=== PATIENT | female | born 1945 | race Caucasian/White ===

== ENCOUNTER 2018-12-20 09:10 | Emergency (ER) | payer MEDICARE, MEDICAID ==
[~2018-12-20] VITALS: Ht 165.1 cm; Wt 158.8 kg
[2018-12-20 09:10] VITALS: BP_SYST 161
--- NOTE | 2018-12-20 09:10 | NUR ---
BROUGHT BACK TO BED #8 AND TRIAGED. REPORT GIVEN TO DELANEY
--- NOTE | 2018-12-20 09:28 | NUR ---
Patient to ER bed 8 to gown for evaluation. Side rails up. Report given to ANTHONY Keen.
--- NOTE | 2018-12-20 09:35 | NUR ---
ER at bedside examining patient.
[2018-12-20] MEDS ORDERED: ceFAZolin SODIUM 1 GM in D5W 50 ML IV ONE (10:30)
[2018-12-20 10:55] LABS: LYMPHOCYTES # (AUTO) 0.7 K/uL (1.0-5.5); MEAN CORPUSCULAR HEMOGLOBIN 29 pg (27-31); MEAN CORPUSCULAR HGB CONC 32 % (32-36); MONOCYTES # (AUTO) 0.7 K/uL (0.0-1.0)
[2018-12-20 11:02] LABS: HEMATOCRIT 36.8 % (36-48); HEMOGLOBIN 11.8 g/dL (12.0-16.0); MEAN CORPUSCULAR VOLUME 90 fL (79.0-98.0); PLATELET COUNT (AUTO) 183 K/uL (130-430); RED BLOOD CELL COUNT(AUTO) 4.11 MIL/uL (4.2-6.2); RED CELL DISTRIBUTION WIDTH 14.4 % (9.0-15.0); WHITE BLOOD COUNT (AUTO) 11.6 K/uL (4.8-10.8)
[2018-12-20 11:03] LABS: BASOPHILS % (AUTO) 0.3 % (0.0-2.0); EOSINOPHILS % (AUTO) 0.1 % (0.0-4.0); LYMPHOCYTES % (AUTO) 5.9 % (20.5-51.5); MONOCYTES % (AUTO) 6.4 % (1.7-9.3); NEUTROPHILS % (AUTO) 87.3 % (40.0-70.0)
[2018-12-20 11:04] LABS: NEUTROPHILS # (AUTO) 10.2 K/uL (1.8-7.7)
[2018-12-20 11:13] LABS: PROTHROMBIN TIME 9.8 SECS (9.5-12.5)
[2018-12-20 11:20] LABS: ANION GAP 9 (5-15); CALCIUM 9.7 mg/dL (8.4-11.0); CHLORIDE 101 mmol/L (98-107); CREATININE 0.91 mg/dL (0.55-1.30); GLUCOSE 180 mg/dL (70-99); POTASSIUM 4.6 mmol/L (3.5-5.1); SODIUM SERUM 137 mmol/L (136-145); UREA NITROGEN, BLOOD 17 mg/dL (8-21)
[2018-12-20] MEDS ORDERED: KETOROLAC TROMETHAMINE 30 MG VIAL IVP ONE (11:30)
[2018-12-20] MEDS ORDERED: DIPHENHYDRAMINE INJ 50 MG/ML VIAL IVP ONE (11:30)
[2018-12-20] MEDS ORDERED: MORPHINE 4 MG/ML INJ. SYRINGE IVP ONE (11:30)
[2018-12-20] MEDS ORDERED: ceFAZolin SODIUM 1 GM VIAL ONE (11:33)
[2018-12-20 11:36] LABS: ALANINE AMINOTRANSFERASE 23 U/L (12-78); ALBUMIN 3.8 g/dL (3.4-4.8); ASPARTATE AMINOTRANSFERASE 27 U/L (10-37); FREE T4 (FREE THYROXINE) 0.8 ng/dL (0.6-1.6); TOTAL BILIRUBIN 0.7 mg/dL (0.0-1.0)
[2018-12-20 13:02] VITALS: BP_SYST 141
--- NOTE | 2018-12-20 18:57 | NUR ---
Patient given written and verbal discharge instructions and verbalizes understanding. ER MD discussed with patient the results and treatment provided. Patient in stable condition. ID arm band removed. IV catheter removed intact and dressing applied, no active bleeding. Rx of Augmentin, Bactrim, [place] given. Patient educated on pain management and to follow up with PMD. Pain Scale 0/10. Opportunity for questions provided and answered. Medication side effect fact sheet provided. Addendum: 12/20/18 at 1858 by [email or web address] Time of discharge: 7412.
--- NOTE | 2018-12-21 08:43 | NUR ---
Blood culture positive for gram + cocci in clusters was resulted. The results were reviewed with Dr. Linton who states that the previously prescribed antibiotics should be emperically effective. I called the patient to perform a well check and discuss findings, however there was no answer. I left a voicemail urging the patient to call to discuss results in a HIP[facility] blinded manner.
== END 2018-12-20 18:57 | disposition home or self-care (01) ==
LOC: SED 09:10
DX: L03.115 Cellulitis of right lower limb (principal); E78.00 Pure hypercholesterolemia, unspecified; E11.9 Type 2 diabetes mellitus without complications; I10 Essential (primary) hypertension
CPT/HCPCS: 36415; 73600; 80053; 83605; 83880; 84439; 84484; 85025; 85610; 87040; 87186; 93005; 93971; 96365; 96375; 99284; J0690; J1200; J1885; J2270

== ENCOUNTER 2018-12-23 00:56 | Inpatient (IN) | payer MEDICAID, MEDICARE ==
[~2018-12-23] VITALS: Ht 157.5 cm; Wt 108.9 kg
[2018-12-23 01:05] VITALS: BP_SYST 134
[2018-12-23] MEDS ORDERED: NACL 0.9% 1,000 ML IV ONE ×2 (01:15→02:15)
[2018-12-23] MEDS ORDERED: LEVOFLOXACIN 500 MG/D5W 100 ML IV ONE (01:15)
[2018-12-23 01:41] LABS: BASOPHILS % (AUTO) 0.4 % (0.0-2.0); EOSINOPHILS # (AUTO) 0.1 K/uL (0.0-0.4); EOSINOPHILS % (AUTO) 0.7 % (0.0-4.0); HEMATOCRIT 32.5 % (36-48); HEMOGLOBIN 10.6 g/dL (12.0-16.0); LYMPHOCYTES # (AUTO) 1.1 K/uL (1.0-5.5); LYMPHOCYTES % (AUTO) 11.6 % (20.5-51.5); MEAN CORPUSCULAR HEMOGLOBIN 29 pg (27-31); MEAN CORPUSCULAR HGB CONC 33 % (32-36); MEAN CORPUSCULAR VOLUME 88 fL (79.0-98.0); MONOCYTES # (AUTO) 0.7 K/uL (0.0-1.0); MONOCYTES % (AUTO) 7.3 % (1.7-9.3); PLATELET COUNT (AUTO) 223 K/uL (130-430); RED BLOOD CELL COUNT(AUTO) 3.68 MIL/uL (4.2-6.2); RED CELL DISTRIBUTION WIDTH 13.9 % (9.0-15.0); WHITE BLOOD COUNT (AUTO) 9.9 K/uL (4.8-10.8)
[2018-12-23 01:52] LABS: ANION GAP 14 (5-15); CALCIUM 9.3 mg/dL (8.4-11.0); CHLORIDE 97 mmol/L (98-107); CREATININE 1.67 mg/dL (0.55-1.30); GLUCOSE 195 mg/dL (70-99); POTASSIUM 3.9 mmol/L (3.5-5.1); SODIUM SERUM 134 mmol/L (136-145); UREA NITROGEN, BLOOD 24 mg/dL (8-21)
[2018-12-23 01:58] LABS: ALANINE AMINOTRANSFERASE 25 U/L (12-78); ALBUMIN 3.1 g/dL (3.4-4.8); ASPARTATE AMINOTRANSFERASE 31 U/L (10-37); TOTAL BILIRUBIN 0.5 mg/dL (0.0-1.0)
[2018-12-23] MEDS ORDERED: MORPHINE 4 MG/ML INJ. SYRINGE IVP ONE (02:00)
[2018-12-23 02:09] LABS: INR 0.9 (0.8-1.2); PROTHROMBIN TIME 9.1 SECS (9.5-12.5)
[2018-12-23 03:06] LABS: BILIRUBIN,URINE NEGATIVE (NEGATIVE); CLARITY/URINE CLEAR (CLEAR); COLOR,URINE YELLOW (YELLOW); GLUCOSE,URINE NEGATIVE (NEGATIVE); KETONES,URINE TRACE (NEGATIVE); LEUKOCYTE ESTERASE ,URINE NEGATIVE (NEGATIVE); NITRITE, URINE NEGATIVE (NEGATIVE); PROTEIN URINE 1+ (NEGATIVE)
[2018-12-23 03:08] LABS: BLOOD, URINE TRACE (NEGATIVE)
[2018-12-23] MEDS ORDERED: PIOG30TA70 PO (03:13)
[2018-12-23] MEDS ORDERED: LOSA100T3 PO (03:16)
[2018-12-23] MEDS ORDERED: METO25TA6 PO (03:16)
[2018-12-23] MEDS ORDERED: SIMV10TA2 PO (03:16)
[2018-12-23] MEDS ORDERED: GLU500 PO (03:16)
[2018-12-23 03:38] LABS: BACTERIA,URINE FEW /HPF (None Seen); WBC,URINE 0-3 /HPF (0-3)
[2018-12-23 03:46] VITALS: BP_SYST 151
[2018-12-23] MEDS ORDERED: ONDANSETRON HCL 4 MG/2 ML VIAL IVP PRN (05:45)
[2018-12-23] MEDS ORDERED: ACETAMINOPHEN 325 MG TABLET PO PRN (05:45)
[2018-12-23] MEDS ORDERED: HYDROcodone/ACETAMIN 5-325 MG TAB (NORCO/ VICODIN) PO PRN (05:45)
[2018-12-23] MEDS ORDERED: DEXTROSE 50% JECT 50 ML DISP.SYRIN IVP PRN (05:45)
[2018-12-23] MEDS ORDERED: LORazepam 2 MG/ML VIAL IVP PRN (05:45)
[2018-12-23] MEDS: INSULIN REGULAR, HUMAN 100 UNITS/ML, 10 ML VIAL (novoLIN R) SUBCUT PRN ×2 (06:45→11:24)
[2018-12-23] MEDS: HYDROcodone/ACETAMIN 10-325 MG TAB PO PRN ×3 (06:52→21:02)
[2018-12-23 08:02] VITALS: BP_SYST 117
[2018-12-23] MEDS: METOPROLOL TARTRATE 25 MG TABLET PO SCH ×2 (08:13→21:01)
[2018-12-23] MEDS: PIOGLITAZONE HCL 15 MG TABLET PO SCH (08:13)
[2018-12-23] MEDS: SIMVASTATIN 10 MG TABLET PO SCH (08:13)
[2018-12-23] MEDS: LOSARTAN POTASSIUM 50 MG TABLET (COZAAR) PO SCH (08:14)
[2018-12-23] MEDS ORDERED: ceFAZolin SODIUM 1 GM in D5W 50 ML IV ONE (11:45)
[2018-12-23 12:27] VITALS: BP_SYST 138
[2018-12-23 15:45] VITALS: BP_SYST 140
[2018-12-23] MEDS ORDERED: LEVOFLOXACIN 250 MG/D5W 50 ML IV SCH (21:00)
[2018-12-23] MEDS: ceFAZolin SODIUM 1 GM in D5W 50 ML IV SCH (21:01)
[2018-12-24 06:54] LABS: BASOPHILS % (AUTO) 0.4 % (0.0-2.0); EOSINOPHILS # (AUTO) 0.1 K/uL (0.0-0.4); EOSINOPHILS % (AUTO) 1.9 % (0.0-4.0); HEMATOCRIT 29.1 % (36-48); HEMOGLOBIN 9.7 g/dL (12.0-16.0); LYMPHOCYTES # (AUTO) 0.9 K/uL (1.0-5.5); LYMPHOCYTES % (AUTO) 14.4 % (20.5-51.5); MEAN CORPUSCULAR HEMOGLOBIN 29 pg (27-31); MEAN CORPUSCULAR HGB CONC 33 % (32-36); MEAN CORPUSCULAR VOLUME 88 fL (79.0-98.0); MONOCYTES # (AUTO) 0.6 K/uL (0.0-1.0); MONOCYTES % (AUTO) 9.8 % (1.7-9.3); NEUTROPHILS # (AUTO) 4.6 K/uL (1.8-7.7); NEUTROPHILS % (AUTO) 73.5 % (40.0-70.0); PLATELET COUNT (AUTO) 216 K/uL (130-430); RED CELL DISTRIBUTION WIDTH 13.6 % (9.0-15.0)
[2018-12-24 07:05] LABS: ANION GAP 8 (5-15); CALCIUM 8.8 mg/dL (8.4-11.0); CHLORIDE 102 mmol/L (98-107); CREATININE 1.01 mg/dL (0.55-1.30); GLUCOSE 159 mg/dL (70-99); POTASSIUM 4.3 mmol/L (3.5-5.1); SODIUM SERUM 134 mmol/L (136-145); UREA NITROGEN, BLOOD 15 mg/dL (8-21)
[2018-12-24 07:06] LABS: WHITE BLOOD COUNT (AUTO) 6.2 K/uL (4.8-10.8)
[2018-12-24 07:21] LABS: C-REACTIVE PROTEIN QUANT 17.5 mg/dL (0-0.5)
[2018-12-24] MEDS: metFORMIN HCL 500 MG TABLET PO SCH ×3 (08:00→18:00)
[2018-12-24] MEDS: PIOGLITAZONE HCL 15 MG TABLET PO SCH (08:35)
[2018-12-24] MEDS: SIMVASTATIN 10 MG TABLET PO SCH (08:35)
[2018-12-24] MEDS: ceFAZolin SODIUM 1 GM in D5W 50 ML IV SCH ×2 (08:35→20:32)
[2018-12-24] MEDS: LOSARTAN POTASSIUM 50 MG TABLET (COZAAR) PO SCH (08:36)
[2018-12-24] MEDS: METOPROLOL TARTRATE 25 MG TABLET PO SCH ×2 (08:36→20:32)
[2018-12-24 08:40] VITALS: BP_SYST 148
[2018-12-24 11:19] LABS: ERYTHROCYTE SEDIMENTATION RATE 106 MM/HR (0-20)
[2018-12-24] MEDS: INSULIN REGULAR, HUMAN 100 UNITS/ML, 10 ML VIAL (novoLIN R) SUBCUT PRN ×2 (11:30→20:37)
[2018-12-24 12:10] VITALS: BP_SYST 153
[2018-12-24] MEDS: HYDROcodone/ACETAMIN 10-325 MG TAB PO PRN ×2 (13:37→21:40)
[2018-12-24 16:52] VITALS: BP_SYST 149
[2018-12-24 19:30] VITALS: BP_SYST 124
[2018-12-24] MEDS: VANCOMYCIN HCL 1,500 MG in NS 250 ML IV SCH (19:41)
[2018-12-24] MEDS: DOCUSATE SODIUM 100 MG CAPSULE PO SCH (20:32)
[2018-12-25 00:09] VITALS: BP_SYST 117
[2018-12-25] MEDS: INSULIN REGULAR, HUMAN 100 UNITS/ML, 10 ML VIAL (novoLIN R) SUBCUT PRN ×4 (06:16→20:17)
[2018-12-25 06:47] LABS: ANION GAP 8 (5-15); CHLORIDE 100 mmol/L (98-107); CREATININE 0.96 mg/dL (0.55-1.30); GLUCOSE 149 mg/dL (70-99); POTASSIUM 4.2 mmol/L (3.5-5.1); SODIUM SERUM 134 mmol/L (136-145); UREA NITROGEN, BLOOD 16 mg/dL (8-21)
[2018-12-25 06:59] LABS: C-REACTIVE PROTEIN QUANT 14.9 mg/dL (0-0.5)
[2018-12-25 08:15] VITALS: BP_SYST 159
[2018-12-25 08:27] LABS: ERYTHROCYTE SEDIMENTATION RATE 100 MM/HR (0-20)
[2018-12-25 08:31] LABS: BASOPHILS % (AUTO) 0.4 % (0.0-2.0); EOSINOPHILS # (AUTO) 0.2 K/uL (0.0-0.4); HEMATOCRIT 30.5 % (36-48); HEMOGLOBIN 9.8 g/dL (12.0-16.0); LYMPHOCYTES % (AUTO) 17.4 % (20.5-51.5); MEAN CORPUSCULAR HEMOGLOBIN 28 pg (27-31); MEAN CORPUSCULAR HGB CONC 32 % (32-36); MEAN CORPUSCULAR VOLUME 88 fL (79.0-98.0); MONOCYTES # (AUTO) 0.5 K/uL (0.0-1.0); MONOCYTES % (AUTO) 9.3 % (1.7-9.3); NEUTROPHILS # (AUTO) 4.1 K/uL (1.8-7.7); NEUTROPHILS % (AUTO) 69.9 % (40.0-70.0); PLATELET COUNT (AUTO) 277 K/uL (130-430); RED BLOOD CELL COUNT(AUTO) 3.46 MIL/uL (4.2-6.2); RED CELL DISTRIBUTION WIDTH 13.8 % (9.0-15.0); WHITE BLOOD COUNT (AUTO) 5.8 K/uL (4.8-10.8)
[2018-12-25] MEDS: SIMVASTATIN 10 MG TABLET PO SCH (08:41)
[2018-12-25] MEDS: metFORMIN HCL 500 MG TABLET PO SCH ×2 (08:41→17:19)
[2018-12-25] MEDS: PIOGLITAZONE HCL 15 MG TABLET PO SCH (08:42)
[2018-12-25] MEDS: DOCUSATE SODIUM 100 MG CAPSULE PO SCH ×2 (08:42→20:11)
[2018-12-25] MEDS: HYDROcodone/ACETAMIN 10-325 MG TAB PO PRN ×3 (08:43→22:05)
[2018-12-25] MEDS: METOPROLOL TARTRATE 25 MG TABLET PO SCH ×2 (08:43→20:11)
[2018-12-25] MEDS: LOSARTAN POTASSIUM 50 MG TABLET (COZAAR) PO SCH (08:44)
[2018-12-25] MEDS: ceFAZolin SODIUM 1 GM in D5W 50 ML IV SCH ×2 (08:48→20:10)
[2018-12-25 12:07] VITALS: BP_SYST 116
[2018-12-25] MEDS: PSYLLIUM HUSK 1 PKT PACKET PO SCH ×2 (13:58→20:11)
[2018-12-25 16:03] VITALS: BP_SYST 113
[2018-12-25] MEDS: VANCOMYCIN HCL 1,500 MG in NS 250 ML IV SCH (17:18)
[2018-12-25 19:15] VITALS: BP_SYST 134
[2018-12-26 00:26] VITALS: BP_SYST 135
[2018-12-26 06:20] LABS: BASOPHILS % (AUTO) 0.6 % (0.0-2.0); EOSINOPHILS # (AUTO) 0.2 K/uL (0.0-0.4); EOSINOPHILS % (AUTO) 3.9 % (0.0-4.0); HEMATOCRIT 29.5 % (36-48); HEMOGLOBIN 9.5 g/dL (12.0-16.0); LYMPHOCYTES % (AUTO) 17.3 % (20.5-51.5); MEAN CORPUSCULAR HEMOGLOBIN 29 pg (27-31); MEAN CORPUSCULAR HGB CONC 32 % (32-36); MEAN CORPUSCULAR VOLUME 90 fL (79.0-98.0); MONOCYTES # (AUTO) 0.6 K/uL (0.0-1.0); MONOCYTES % (AUTO) 10.4 % (1.7-9.3); NEUTROPHILS # (AUTO) 4.1 K/uL (1.8-7.7); NEUTROPHILS % (AUTO) 67.8 % (40.0-70.0); PLATELET COUNT (AUTO) 310 K/uL (130-430); RED BLOOD CELL COUNT(AUTO) 3.28 MIL/uL (4.2-6.2); RED CELL DISTRIBUTION WIDTH 13.5 % (9.0-15.0); WHITE BLOOD COUNT (AUTO) 5.9 K/uL (4.8-10.8)
[2018-12-26 06:24] LABS: POTASSIUM 4.5 mmol/L (3.5-5.1); SODIUM SERUM 134 mmol/L (136-145)
[2018-12-26 06:25] LABS: ANION GAP 4 (5-15); CALCIUM 8.7 mg/dL (8.4-11.0); CHLORIDE 104 mmol/L (98-107); GLUCOSE 132 mg/dL (70-99); UREA NITROGEN, BLOOD 21 mg/dL (8-21)
[2018-12-26 06:26] LABS: CREATININE 1.02 mg/dL (0.55-1.30)
[2018-12-26] MEDS: INSULIN REGULAR, HUMAN 100 UNITS/ML, 10 ML VIAL (novoLIN R) SUBCUT PRN ×3 (06:41→21:57)
[2018-12-26 06:55] LABS: C-REACTIVE PROTEIN QUANT 11.3 mg/dL (0-0.5)
[2018-12-26 08:00] VITALS: BP_SYST 161
[2018-12-26] MEDS: ceFAZolin SODIUM 1 GM in D5W 50 ML IV SCH ×2 (08:53→21:48)
[2018-12-26] MEDS: PSYLLIUM HUSK 1 PKT PACKET PO SCH ×3 (08:53→21:48)
[2018-12-26] MEDS: metFORMIN HCL 500 MG TABLET PO SCH ×2 (08:53→17:25)
[2018-12-26] MEDS: DOCUSATE SODIUM 100 MG CAPSULE PO SCH ×2 (08:53→21:48)
[2018-12-26] MEDS: SIMVASTATIN 10 MG TABLET PO SCH (08:53)
[2018-12-26] MEDS: PIOGLITAZONE HCL 15 MG TABLET PO SCH (08:53)
[2018-12-26] MEDS: LOSARTAN POTASSIUM 50 MG TABLET (COZAAR) PO SCH (08:54)
[2018-12-26] MEDS: METOPROLOL TARTRATE 25 MG TABLET PO SCH ×2 (08:54→21:53)
[2018-12-26] MEDS: HYDROcodone/ACETAMIN 10-325 MG TAB PO PRN (08:56)
[2018-12-26 10:26] LABS: ERYTHROCYTE SEDIMENTATION RATE 96 MM/HR (0-20)
[2018-12-26 11:59] VITALS: BP_SYST 118
[2018-12-26 16:17] VITALS: BP_SYST 119
[2018-12-26] MEDS: VANCOMYCIN HCL 1,500 MG in NS 250 ML IV SCH (17:25)
[2018-12-26 20:55] VITALS: BP_SYST 134
[2018-12-26 23:33] VITALS: BP_SYST 128
[2018-12-27 06:53] LABS: ALANINE AMINOTRANSFERASE 12 U/L (12-78); ALBUMIN 2.4 g/dL (3.4-4.8); ANION GAP 7 (5-15); ASPARTATE AMINOTRANSFERASE 13 U/L (10-37); C-REACTIVE PROTEIN QUANT 7.5 mg/dL (0-0.5); CHLORIDE 102 mmol/L (98-107); CREATININE 0.94 mg/dL (0.55-1.30); GLUCOSE 136 mg/dL (70-99); POTASSIUM 4.3 mmol/L (3.5-5.1); SODIUM SERUM 136 mmol/L (136-145); TOTAL BILIRUBIN 0.3 mg/dL (0.0-1.0); UREA NITROGEN, BLOOD 19 mg/dL (8-21)
[2018-12-27 06:58] LABS: BASOPHILS % (AUTO) 0.4 % (0.0-2.0); EOSINOPHILS # (AUTO) 0.2 K/uL (0.0-0.4); EOSINOPHILS % (AUTO) 3.5 % (0.0-4.0); HEMATOCRIT 29.7 % (36-48); HEMOGLOBIN 9.4 g/dL (12.0-16.0); LYMPHOCYTES # (AUTO) 0.7 K/uL (1.0-5.5); LYMPHOCYTES % (AUTO) 12.1 % (20.5-51.5); MEAN CORPUSCULAR HEMOGLOBIN 28 pg (27-31); MEAN CORPUSCULAR HGB CONC 32 % (32-36); MEAN CORPUSCULAR VOLUME 89 fL (79.0-98.0); MONOCYTES # (AUTO) 0.5 K/uL (0.0-1.0); NEUTROPHILS # (AUTO) 4.3 K/uL (1.8-7.7); PLATELET COUNT (AUTO) 375 K/uL (130-430); RED BLOOD CELL COUNT(AUTO) 3.34 MIL/uL (4.2-6.2); RED CELL DISTRIBUTION WIDTH 13.7 % (9.0-15.0); WHITE BLOOD COUNT (AUTO) 5.7 K/uL (4.8-10.8)
[2018-12-27 08:00] VITALS: BP_SYST 131
[2018-12-27] MEDS: PSYLLIUM HUSK 1 PKT PACKET PO SCH ×2 (08:27→15:59)
[2018-12-27] MEDS: metFORMIN HCL 500 MG TABLET PO SCH (08:27)
[2018-12-27] MEDS: DOCUSATE SODIUM 100 MG CAPSULE PO SCH (08:28)
[2018-12-27] MEDS: LOSARTAN POTASSIUM 50 MG TABLET (COZAAR) PO SCH (08:28)
[2018-12-27] MEDS: METOPROLOL TARTRATE 25 MG TABLET PO SCH (08:28)
[2018-12-27] MEDS: SIMVASTATIN 10 MG TABLET PO SCH (08:28)
[2018-12-27] MEDS: PIOGLITAZONE HCL 15 MG TABLET PO SCH (08:29)
[2018-12-27] MEDS: ceFAZolin SODIUM 1 GM in D5W 50 ML IV SCH (08:29)
[2018-12-27 08:40] LABS: ERYTHROCYTE SEDIMENTATION RATE 102 MM/HR (0-20)
[2018-12-27] MEDS: INSULIN REGULAR, HUMAN 100 UNITS/ML, 10 ML VIAL (novoLIN R) SUBCUT PRN (12:49)
[2018-12-27 12:50] VITALS: BP_SYST 146
[2018-12-27 15:35] VITALS: BP_SYST 125
[2018-12-27 16:40] VITALS: BP_SYST 156
== END 2018-12-27 17:10 | DRG 349 ==
LOC: SED 00:56 → SMU 03:21
PROVIDERS: ADMIT Preventive Medicine Preventive Medicine/Occupational Environmental Medicine; ATTEND Preventive Medicine Preventive Medicine/Occupational Environmental Medicine
DX: T84.53XA Infection and inflammatory reaction due to internal right knee prosthesis, initial encounter (principal); A41.01 Sepsis due to Methicillin susceptible Staphylococcus aureus; N17.0 Acute kidney failure with tubular necrosis; E11.65 Type 2 diabetes mellitus with hyperglycemia; E87.1 Hypo-osmolality and hyponatremia; L03.115 Cellulitis of right lower limb; E11.69 Type 2 diabetes mellitus with other specified complication; Z68.41 Body mass index [BMI] 40.0-44.9, adult; Z66 Do not resuscitate; D64.9 Anemia, unspecified; E11.9 Type 2 diabetes mellitus without complications; Z96.659 Presence of unspecified artificial knee joint; M86.8X7 Other osteomyelitis, ankle and foot; E66.9 Obesity, unspecified; E78.00 Pure hypercholesterolemia, unspecified; Y83.8 Other surgical procedures as the cause of abnormal reaction of the patient, or of later complication, without mention of misadventure at the time of the procedure; W19.XXXA Unspecified fall, initial encounter; E78.5 Hyperlipidemia, unspecified; I10 Essential (primary) hypertension; K62.89 Other specified diseases of anus and rectum; Y93.89 Activity, other specified; Y92.89 Other specified places as the place of occurrence of the external cause; Y99.8 Other external cause status
CPT/HCPCS: 36415; 80048; 80053; 80202-TC; 81000-TC; 82962; 83605; 83735-TC; 84100-TC; 85025; 85610-TC; 85651-TC; 85730-TC; 86140; 87040-TC; 87081; 87086; 87186-TC; 93005; 96361; 96365; 96375; 97110-GP; 97116-GP; 97530-GP; 99285; J0690; J1815; J1956; J2270; J2405; J3370; J7050; J7060

== ENCOUNTER 2021-11-18 19:27 | Emergency (ER) | payer MEDICAID, MEDICARE, SELFPAY ==
[~2021-11-18] VITALS: Ht 157.5 cm; Wt 117.9 kg
[~2021-11-18 19:27] MED LIST: ASA81 PO; GLU500 PO; LOSA100T3 PO; METO25TA6 PO; SIMV10TA2 PO
[2021-11-18 19:40] VITALS: BP_SYST 156
--- NOTE | 2021-11-18 19:40 | NUR ---
Patient triaged and placed in waiting room. VSS and patient appears in no acute distress at this time. Accompanied by fam member, awaiting available bed, and MD notified of need for MSE.
[2021-11-18 21:22] LABS: BILIRUBIN,URINE NEGATIVE (NEGATIVE); COLOR,URINE YELLOW (YELLOW); GLUCOSE,URINE 2+ (NEGATIVE); KETONES,URINE TRACE (NEGATIVE); LEUKOCYTE ESTERASE ,URINE 2+ (NEGATIVE); NITRITE, URINE POSITIVE (NEGATIVE); PROTEIN URINE TRACE (NEGATIVE); UROBILINOGEN,URINE 0.2 (0.2-1.0)
[2021-11-18 21:25] LABS: BLOOD, URINE TRACE (NEGATIVE); CLARITY/URINE HAZY (CLEAR)
[2021-11-18 21:31] LABS: BACTERIA,URINE MODERATE /HPF (None Seen); MUCUS,URINE None Seen /LPF (None Seen); RBC,URINE NONE SEEN /HPF (0-3); WBC,URINE >100 /HPF (0-3)
--- NOTE | 2021-11-19 00:05 | NUR ---
ER examining patient in the [facility].
[2021-11-19] MEDS ORDERED: PHENAZOPYRIDINE HCL 100 MG TABLET PO ONE (00:15)
[2021-11-19] MEDS ORDERED: cefTRIAXone 1 GM in LIDOCAINE 1%, 20 ML MDV 2.1 ML IM ONE (00:15)
[2021-11-19] MEDS ORDERED: PHEN-726 PO (00:22)
[2021-11-19] MEDS ORDERED: CEFU250T85 PO (00:22)
--- NOTE | 2021-11-19 01:19 | NUR ---
Patient given written and verbal discharge instructions and verbalizes understanding. ER MD discussed with patient the results and treatment provided. Patient in stable condition. ID arm band removed. Rx of Ceftin and Pyridium given. Patient educated on pain management and to follow up with PMD. Pain Scale 3/10. Opportunity for questions provided and answered. Medication side effect fact sheet provided.
[2021-11-19 01:22] VITALS: BP_SYST 149
== END 2021-11-19 01:19 | disposition home or self-care (01) ==
LOC: SED 19:27
DX: N39.0 Urinary tract infection, site not specified (principal); I10 Essential (primary) hypertension; E11.9 Type 2 diabetes mellitus without complications; Z79.899 Other long term (current) drug therapy
CPT/HCPCS: 81000; 87086; 96372; 99283; J0696; J2001

== ENCOUNTER 2022-04-05 13:45 | Emergency (ER) | payer MEDICAID, MEDICARE ==
[~2022-04-05] VITALS: Ht 157.5 cm; Wt 113.4 kg
[~2022-04-05 13:45] MED LIST changes: +AMOX-423 PO; +METR-154 PO
[2022-04-05 14:03] VITALS: BP_SYST 194
[2022-04-05] MEDS ORDERED: MECLIZINE HCL 25 MG TABLET (ANITVERT) PO ONE (14:45)
[2022-04-05 15:36] LABS: EOSINOPHILS # (AUTO) 0.1 K/uL (0.0-0.4); HEMOGLOBIN 10.6 g/dL (12.0-16.0)
[2022-04-05 15:47] LABS: BASOPHILS % (AUTO) 0.4 % (0.0-2.0); EOSINOPHILS % (AUTO) 1.4 % (0.0-4.0); HEMATOCRIT 32.5 % (36-48); LYMPHOCYTES # (AUTO) 1.5 K/uL (1.0-5.5); LYMPHOCYTES % (AUTO) 24.3 % (20.5-51.5); MEAN CORPUSCULAR HEMOGLOBIN 29 pg (27-31); MEAN CORPUSCULAR HGB CONC 33 % (32-36); MEAN CORPUSCULAR VOLUME 89 fL (79.0-98.0); MONOCYTES # (AUTO) 0.4 K/uL (0.0-1.0); MONOCYTES % (AUTO) 5.9 % (1.7-9.3); NEUTROPHILS # (AUTO) 4.3 K/uL (1.8-7.7); PLATELET COUNT (AUTO) 211 K/uL (130-430); RED BLOOD CELL COUNT(AUTO) 3.66 MIL/uL (4.2-6.2); RED CELL DISTRIBUTION WIDTH 14.5 % (9.0-15.0); WHITE BLOOD COUNT (AUTO) 6.3 K/uL (4.8-10.8)
[2022-04-05 15:48] LABS: ANION GAP 6 (5-15); CHLORIDE 102 mmol/L (98-107); CREATININE 1.13 mg/dL (0.55-1.30); GLUCOSE 176 mg/dL (70-99); POTASSIUM 4.2 mmol/L (3.5-5.1); SODIUM SERUM 134 mmol/L (136-145); UREA NITROGEN, BLOOD 17 mg/dL (8-21)
[2022-04-05 15:54] LABS: ALANINE AMINOTRANSFERASE 16 U/L (12-78); ALBUMIN 3.1 g/dL (3.4-4.8); ASPARTATE AMINOTRANSFERASE 17 U/L (10-37); TOTAL BILIRUBIN 0.1 mg/dL (0.0-1.0)
[2022-04-05] MEDS ORDERED: MECL-261 PO (16:39)
[2022-04-05 17:04] VITALS: BP_SYST 178
== END 2022-04-05 17:06 | disposition home or self-care (01) ==
LOC: SED 13:45
DX: H81.399 Other peripheral vertigo, unspecified ear (principal); E11.9 Type 2 diabetes mellitus without complications; I10 Essential (primary) hypertension; Z79.899 Other long term (current) drug therapy
CPT/HCPCS: 36415; 80053; 81002; 82962; 83880; 85025; 87086; 93005; 99284; J8597